=== PATIENT | male | born 1995 | race African-American/Black ===

== ENCOUNTER 2019-05-24 21:04 | Emergency (ER) | payer SELFPAY | END 2019-05-25 00:22 | disposition left against medical advice (07) | LOC: ER 21:04 | DX: Z53.21 Procedure and treatment not carried out due to patient leaving prior to being seen by health care provider (principal) ==

== ENCOUNTER 2019-08-13 20:31 | Emergency (ER) | payer SELFPAY ==
--- NOTE | 2019-08-13 20:51 | ER Document Report ---
HPI - HPI Context: Patient is a 24-year-old male with a history of hypertension and lupus who presents to the emergency department with a chief complaint of difficulty swallowing. Patient reports this has been intermittent for the past 2-3 months. Patient reports he feels like he has a knot in his throat. Patient states he is able to swallow his own secretions. Patient reports he attempted to eat some chicken when he was having difficulty swallowing which is why he sought care in the emergency department. Patient reports he has never had an upper endoscopy or been evaluated for this. Patient reports over the past few weeks he is only been drinking Ensure because it is difficult to swallow. Patient reports when he attempts to drink liquids he feels like it goes down and comes back up before going all the way into his stomach. <EMILY MORRIS - Last Filed: 08/13/19 21:58> <STEPHANY YOU - Last Filed: 08/14/19 07:23> - HPI Time Seen by Provider: 08/13/19 20:35 Past Medical History - General Information source: Patient - Social History Smoking Status: Unknown if Ever Smoked Lives with: Family Family History: None - Past Medical History Cardiac Medical History: Reports: Hx Hypertension Pulmonary Medical History: Reports: None EENT Medical History: Reports: None Neurological Medical History: Reports: None Endocrine Medical History: Reports: None Renal/ Medical History: Reports: None Malignancy Medical History: Reports None GI Medical History: Reports: None Musculoskeletal Medical History: Reports Other - Lupus Skin Medical History: Reports None Psychiatric Medical History: Reports: None Traumatic Medical History: Reports: None Infectious Medical History: Reports: None Surgical Hx: Negative <EMILY MORRIS - Last Filed: 08/13/19 21:58> Vertical Provider Document - CONSTITUTIONAL Agree With Documented VS: Yes Exam Limitations: No Limitations General Appearance: No Apparent Distress - INFECTION CONTROL TRAVEL OUTSIDE OF THE [place] IN LAST 30 DAYS: No - HEENT HEENT: Atraumatic, Normocephalic, PERRLA Notes: Airway is patent. There is no edema/erythema noted to the tonsils or pharynx. Patient is able to swallow his own secretions. Uvula is midline without edema. - NECK Neck: Normal Inspection Notes: No cervical lymphadenopathy. - RESPIRATORY Respiratory: Breath Sounds Normal, No Respiratory Distress - CARDIOVASCULAR Cardiovascular: Regular Rate, Regular Rhythm - GI/ABDOMEN Gastrointestinal: Abdomen Soft, Abdomen Non-Tender - NEURO Level of Consciousness: Awake, Alert, Appropriate - DERM Integumentary: Warm, Dry <EMILY MORRIS - Last Filed: 08/13/19 21:58> Course - Re-evaluation Re-evalutation: 08/13/19 21:58 I did speak with my attending Dr. Landeros regarding the x-ray of the neck and ch est x-ray. I did also speak with Massiel Lombardi, the radiologist who read the scans. She states that there is soft tissue prominence underneath the hyoid bone and that she is concerned about the thyroid. She does recommend getting a CT of the neck with IV contrast. I did update the patient and make him aware. - Vital Signs Vital signs: Temp Pulse Resp BP Pulse Ox 98.2 F 68 16 134/90 H 98 08/13/19 20:39 08/13/19 20:39 08/13/19 20:39 08/13/19 20:39 08/13/19 20:39 - Diagnostic Test Radiology reviewed: Reports reviewed Radiology results interpreted by me: 08/13/19 21:27 Soft Tissue Neck X-Ray 08/13/19 20:45 IMPRESSION: No acute radiographic abnormalities. Chest X-Ray 08/13/19 20:51 IMPRESSION: 1. No acute cardiopulmonary abnormalities. 2. Equivocal findings for lucency of the LEFT hilar region, favoring artifact, however the possibility of pneumomediastinum may be considered in the differential. Correlation with CT chest may be considered. <ALEXNADRAEMILY - Last Filed: 08/13/19 21:58> - Re-evaluation Re-evalutation: Patient was eating when I entered the room. He swallowed without difficulty. He still states that he intermittently will feel swallowing difficulty and "bubbling in the throat and chest". He did an entire [place] pizza earlier today. I am not concerned about obstruction. Patient admits he is almost entirely spicy food. I did review CT of the neck, this shows pneumomediastinum. Patient does state that he has been having chest discomfort for "a while now". He is not in any distress. I did discuss with Dr. Landeros, he evaluated the patient at bedside, patient wants a CT to evaluate this, Dr. Landeros does recommend CT to make sure there is not any associated mass or concerning abnormality associated with the pneumomediastinum. Most likely this is benign. CT showing small mediastinum without obvious source. This had to be performed without contrast because patient's creatinine is greater than 2. He is unsure of having a history of this. His glucose was low as well. He was given IV fluids and food. He has no complaints on reevaluation. I have discussed the work-up with Dr. Landeros. Patient will be discharged with primary care follow-up of with recheck of his kidney functioning, treatment of suspected upper gastrointestinal source of his swallowing symptoms, and he will return if he worsens in any way. Patient states understanding and agreement with plan. - Vital Signs Vital signs: Temp Pulse Resp BP Pulse Ox 98.2 F 68 16 134/90 H 98 08/13/19 20:39 08/13/19 20:39 08/13/19 20:39 08/13/19 20:39 08/13/19 20:39 - Laboratory Result Diagrams: 08/13/19 22:18 08/13/19 22:18 Laboratory results interpreted by me: 08/13/19 08/13/19 22:18 22:18 Lymph % (Auto) 10.5 L Chloride 108 H BUN 36 H Creatinine 2.12 H Est GFR ( Amer) 47 L Est GFR (MDRD) Non-Af 39 L Glucose 68 L <STEPHANY YOU - Last Filed: 08/14/19 07:23> Discharge <EMILY MORRIS - Last Filed: 08/13/19 21:58> <STEPHANY YOU - Last Filed: 08/14/19 07:23> - Discharge Clinical Impression: Pneumomediastinum Dysphagia Qualifiers: Dysphagia type: unspecified Qualified Code(s): R13.10 - Dysphagia, unspecified Condition: Stable Disposition: HOME, SELF-CARE Additional Instructions: You have pneumomediastinum, air in the area of your chest called the mediastinum, this is small and there is no concerning finding otherwise, this should simply resolve with time. The throat appears clear but I suspect this is from inflammation in your gastrointestinal tract causing esophageal spasms.I recommend that you take the Carafate and famotidine as prescribed, reduce spicy food intake, and follow-up with primary care for additional management. Also see GI reference (Dr. Davenport) Your kidney functioning is borderline and concerning today, you have been given IV fluids, this must be closely rechecked with your primary care provider. You may need referral to nephrology if this continues or worsens (see referral listed as you requested). Return if you worsen including inability to swallow, severe worsening pain, vomiting, difficulty breathing, fever, or any other concerning or worsening symptoms. Prescriptions: Sucralfate [Carafate 1 gm Tablet] 1 gm PO QID #20 tablet Famotidine [Pepcid 20 mg Tablet] 20 mg PO BID #14 tablet Referrals: Freda LAGUERRE MD [ACTIVE STAFF] - Follow up as needed TAMIE DAVENPORT MD [ACTIVE STAFF] - Follow up as needed
--- NOTE | 2019-08-13 21:24 | RADIOLOGY REPORT (SQ) ---
EXAM DESCRIPTION: XR CHEST 2 VIEWS COMPLETED DATE/TME: 08/13/2019 20:51 CLINICAL INDICATION: 24-year-old male with difficulty swallowing. TECHNIQUE: Two-view, PA and lateral projections of the chest were obtained. COMPARISON: None. FINDINGS: Unremarkable cardiac and mediastinal silhouette. Heart size is normal. Equivocal findings for lucency of the LEFT hilar region, favoring artifact, however the possibility of pneumomediastinum may be considered in the differential. Correlation with CT chest may be considered. Lungs are clear without focal opacity, pneumothorax or pleural effusions. The visualized bones are within normal limits. IMPRESSION: 1. No acute cardiopulmonary abnormalities. 2. Equivocal findings for lucency of the LEFT hilar region, favoring artifact, however the possibility of pneumomediastinum may be considered in the differential. Correlation with CT chest may be considered.
--- NOTE | 2019-08-13 21:26 | RADIOLOGY REPORT (SQ) ---
EXAM DESCRIPTION: XR NECK SOFT TISSUE COMPLETED DATE/TME: 08/13/2019 20:45 CLINICAL INDICATION: 24-year-old male with difficulty swallowing for six months. TECHNIQUE: Two-view, PA and lateral projections of the chest were obtained. COMPARISON: None. FINDINGS: The prevertebral soft tissues are within normal limits. The airway is patent. The visualized bones are within normal limits. IMPRESSION: No acute radiographic abnormalities.
[2019-08-13 22:36] LABS: ABSOLUTE BASOPHILS # (AUTO) 0.1 10^3/uL (0.0-0.2); ABSOLUTE EOSINOPHILS # (AUTO) 0.4 10^3/uL (0.0-0.6); ABSOLUTE LYMPHOCYTES (AUTO) 0.8 10^3/uL (0.5-4.7); ABSOLUTE MONOCYTES (AUTO) 0.6 10^3/uL (0.1-1.4); EOSINOPHILS % (AUTO) 4.8 % (0-6); HEMATOCRIT 45.1 % (37.9-51.0); HEMOGLOBIN 15.2 g/dL (13.5-17.0); LYMPHOCYTES % (AUTO) 10.5 % (13-45); MEAN CORPUSCULAR HEMOGLOBIN 29.5 pg (27.0-33.4); MEAN CORPUSCULAR HGB CONC 33.7 g/dL (32.0-36.0); MEAN CORPUSCULAR VOLUME 88 fl (80-97); MONOCYTES % (AUTO) 7.7 % (3-13); PLATELET COUNT 247 10^3/uL (150-450); RED BLOOD COUNT 5.15 10^6/uL (4.35-5.55); RED CELL DISTRIBUTION WIDTH 13.8 % (11.5-14.0); TOTAL CELLS COUNTED % (AUTO) 100 %; WHITE BLOOD COUNT 7.8 10^3/uL (4.0-10.5)
[2019-08-13 22:53] LABS: ANION GAP 11 (5-19); BLOOD UREA NITROGEN 36 mg/dL (7-20); CALCIUM 9.5 mg/dL (8.4-10.2); CARBON DIOXIDE 24 mmol/L (22-30); CHLORIDE 108 mmol/L (98-107)
[2019-08-13 22:55] LABS: GLUCOSE 68 mg/dL (75-110)
--- NOTE | 2019-08-13 23:56 | RADIOLOGY REPORT (SQ) ---
EXAM DESCRIPTION: CT NECK WITHOUT IV CONTRAST COMPLETED DATE/TME: 08/13/2019 21:57 CLINICAL HISTORY: 24 years Male, difficulty swallowing Comparison: CR, same day. Technique: No contrast. Coronal and sagittal reformat. This exam was performed according to our departmental dose-optimization program, which includes automated exposure control, adjustment of the mA and/or kV according to patient size and/or use of iterative reconstruction technique. [facility]: Dose Right [facility]: CareDose [facility]: Dose Right [facility]: Teradose 4D [facility]: BidKind LIMITATIONS: No contrast. Findings: Orbits, paranasal sinuses, and skull base: Partially visualized components appear unremarkable. Nasopharynx: Normal. Suprahyoid neck: Normal oropharynx, oral cavity, parapharyngeal space, and retropharyngeal space. Infrahyoid neck: Normal larynx, hypopharynx, and supraglottis. Prominent thyroid cartilage corresponds to soft tissue prominence queried pn X-ray. Thyroid: Normal. Thoracic inlet: Normal lung apices and brachial plexus. Lymph nodes: Normal. No lymphadenopathy. Vascular structures: Normal. Other findings: Small -moderate pneumomediastinum extends to the left hilum, partially imaged chest. Impression: 1. Small-moderate pneumomediastinum, partially imaged. Note: Pneumomediastinum is typically benign such as due to alveolar rupture/dissection from pulmonary interstitium. If there is clinical suspicion for occult disease or trauma such as traumatic injury to the trachea/esophagus or cardiac etiologies, consider further evaluation with contrast CT of the chest and/or Surgical consultation. 2. Otherwise, unremarkable noncontrast CT of the neck.
[2019-08-14] MEDS ORDERED: NORMAL SALINE 1000 ML 1,000 ML IV ONE (00:11)
--- NOTE | 2019-08-14 01:39 | RADIOLOGY REPORT (SQ) ---
CT CHEST WITHOUT IV CONTRAST EXAM DATE: 08/14/2019 12:38 AM CDT HISTORY: Chest pain. COMPARISON: Neck CT from earlier the same day. TECHNIQUE: CT scan of the chest without IV contrast. This exam was performed according to our departmental dose-optimization program, which includes automated exposure control, adjustment of the mA and/or kV according to patient size and/or use of iterative reconstruction technique. FINDINGS: The thyroid gland is normal. No mediastinal or hilar adenopathy. There is a small amount of pneumomediastinum. The heart size is normal without pericardial effusion. The thoracic aorta is normal caliber. No consolidation, pleural effusion, or pneumothorax is identified. The visualized upper abdomen demonstrates no acute findings. No acute osseous findings are seen. IMPRESSION: Small amount of pneumomediastinum without a discrete source identified. This may be seen in the setting of reactive airway disease if there is no history of trauma. Correlate with clinical history.
[2019-08-14 02:08] VITALS: BP 139/86
== END 2019-08-14 02:16 | disposition home or self-care (01) ==
LOC: ER 20:31
DX: J98.2 Interstitial emphysema (principal); R13.10 Dysphagia, unspecified; I10 Essential (primary) hypertension
CPT/HCPCS: 36415; 85025; 80048; 71046; 70360; 70490; 71250; J7030; 96360; 99284